=== PATIENT | male | born 1955 | race Caucasian/White ===

== ENCOUNTER → 2019-08-19 | Outpatient (CLI) | payer OTHER | END | disposition home or self-care (01) | LOC: MRI 08-15 10:00 | DX: R41.3 Other amnesia (principal); R26.89 Other abnormalities of gait and mobility ==

== ENCOUNTER → 2020-01-04 | Outpatient (CLI) | payer OTHER ==
[~2020-01-04] MED LIST: ATORVASTATIN CA40 M1 PO; AUGMENTIN 875875 MG PO; BREO ELLIPTA 21 EACH INH; GABAPENTIN600 MG PO; LAMICTAL200 MG PO; LAMOTRIGINE200 MG PO; METOPROLOL SUCC50 M1 PO; PANTOPRAZOLE SO40 MG PO; REXULTI2 MG PO; SPIRIVA -- 3018 MCG INH
== END | disposition home or self-care (01) ==
LOC: MRI 00:41
DX: M46.02 Spinal enthesopathy, cervical region (principal); M48.02 Spinal stenosis, cervical region; M47.892 Other spondylosis, cervical region; M25.78 Osteophyte, vertebrae

== ENCOUNTER 2020-01-17 10:26 | Emergency (ER) | payer OTHER ==
[2020-01-17] MEDS ORDERED: BREO ELLIPTA 21 EACH INH (11:33)
[2020-01-17] MEDS ORDERED: GABAPENTIN600 MG PO (11:33)
[2020-01-17] MEDS ORDERED: SPIRIVA -- 3018 MCG INH (11:34)
[2020-01-17] MEDS ORDERED: PANTOPRAZOLE SO40 MG PO (11:34)
[2020-01-17] MEDS ORDERED: LAMOTRIGINE200 MG PO (11:34)
[2020-01-17] MEDS ORDERED: REXULTI2 MG PO (11:35)
[2020-01-17] MEDS ORDERED: LAMICTAL200 MG PO (11:35)
[2020-01-17] MEDS ORDERED: METOPROLOL SUCC50 M1 PO (11:36)
[2020-01-17] MEDS ORDERED: ATORVASTATIN CA40 M1 PO (11:36)
[2020-01-17] MEDS ORDERED: AUGMENTIN 875875 MG PO ×2 (13:30→13:39)
== END 2020-01-17 13:46 | disposition home or self-care (01) ==
LOC: ED 10:26
DX: S02.2XXA Fracture of nasal bones, initial encounter for closed fracture (principal); S01.112A Laceration without foreign body of left eyelid and periocular area, initial encounter; Z79.899 Other long term (current) drug therapy; W01.0XXA Fall on same level from slipping, tripping and stumbling without subsequent striking against object, initial encounter; Y93.89 Activity, other specified; Y92.89 Other specified places as the place of occurrence of the external cause; Y99.8 Other external cause status